=== PATIENT | male | born 1985 | race Caucasian/White ===

== ENCOUNTER 2018-03-26 11:16 | Emergency (ER) | payer OTHER ==
[2018-03-26] MEDS: ALPRAZolam 0.5 MG TAB PO (11:42)
[2018-03-26] MEDS ORDERED: MORPHINE 4 MG/ML 1ML VIAL/SYRINGE (J2270) IV (11:45)
[2018-03-26] MEDS: LIDOCAINE 1% MDV 20ML VIAL IM (12:13)
[2018-03-26] MEDS: PERCOCET 5MG/325MG TAB PO ×2 (12:14→14:15)
== END 2018-03-26 14:21 | disposition home or self-care (01) ==
LOC: M ED 11:16
DX: S61.303A Unspecified open wound of left middle finger with damage to nail, initial encounter (principal); S62.633A Displaced fracture of distal phalanx of left middle finger, initial encounter for closed fracture; W22.8XXA Striking against or struck by other objects, initial encounter; Y92.59 Other trade areas as the place of occurrence of the external cause; Y99.0 Civilian activity done for income or pay
CPT/HCPCS: 73140